=== PATIENT | male | born 2000 | race Hispanic/Latino ===

== ENCOUNTER 2024-11-30 10:59 | Emergency (ER) | payer OTHER ==
--- NOTE | 2024-11-30 11:34 | RAD REPORT ---
EXAMINATION: TWO VIEW CHEST XR CLINICAL INDICATION: Male, 24 years old. [facility] MA[facility] DYSPNEA Bed: TECHNIQUE: 2 view radiographs of the chest were performed. COMPARISON: No prior exam. FINDINGS: The lungs are well inflated and clear. No pneumothorax or sizable effusion. The heart is normal in si ze. Mediastinal contours are unremarkable. IMPRESSION: No acute or significant abnormalities.
[2024-11-30] MEDS ORDERED: LEVALBUTEROL 1.25 MG/3 ML NEB ONE (12:06)
[2024-11-30] MEDS ORDERED: predniSONE 20 MG TAB ONE (12:06)
[2024-11-30 12:44] LABS: SARS-CoV-2 Antigen CONTROL BLUE LINE VIS/BG OK; SARS-CoV-2 Antigen Rapid Res Negative (Negative)
--- NOTE | 2024-11-30 13:03 | ER ---
Nurse's Notes [facility] Name: José Miguel Bhat Age: 24 yrs Sex: Male : 2000 Arrival Date: 11/30/2024 Time: 10:59 Bed 9 Private MD: Diagnosis: Dyspnea, unspecified;Wheezing Presentation: 11/30 11:26 Chief complaint: Patient states: "I'm from [place] and since I've been down here, I ss have a constant wheeze. This happened last time I came here too." Denies fever. Coronavirus screen: Client denies travel out of the [place] in the last 14 days. Ebola Screen: Patient denies exposure to infectious person. Patient denies travel to an Ebola-affected area in the 21 days before illness onset. Initial Sepsis Screen: Does the patient meet any 2 criteria? No. Patient's initial sepsis screen is negative. Does the patient have a suspected source of infection? No. Patient's initial sepsis screen is negative. Risk Assessment: Do you want to hurt yourself or someone else? Patient reports no desire to harm self or others. Onset of symptoms was November 25, 2024. 11:26 Method Of Arrival: Ambulatory ss 11:26 Acuity: NI 3 ss Historical: - Allergies: 11:28 No Known Allergies; ss - Home Meds: 11:28 None [Active]; ss - PMHx: 11:28 None; ss - PSHx: 11:28 None; ss - Immunization history:: Client reports having NOT received the Covid vaccine. - Infectious Disease History:: Denies. - Social history:: Smoking status: Patient/guardian denies using tobacco, Stopped _ months ago .25. - Family history:: not pertinent. - Hospitalizations: : No recent hospitalization is reported. Screenin:19 [facility] ED Fall Risk Assessment (Adult) History of falling in the last 3 months, jb4 including since admission No falls in past 3 months (0 pts) Confusion or Disorientation No (0 pts) Intoxicated or Sedated No (0 pts) Impaired Gait No (0 pts) Mobility Assist Device Used No (0 pt) Altered Elimination No (0 pt) Score/Fall Risk Level 0 - 2 = Low Risk Oriented to surroundings, Maintained a safe environment. Abuse screen: Denies threats or abuse. Nutritional screening: No deficits noted. Tuberculosis screening: No symptoms or risk factors identified. Assessment: 12:19 General: Appears in no apparent distress. comfortable, Behavior is calm, cooperative, jb4 appropriate for age. Pain: Denies pain. Neuro: Level of Consciousness is awake, alert, obeys commands, Oriented to person, place, time, situation. Cardiovascular: Patient's skin is warm and dry. Respiratory: Airway is patent Respiratory effort is even, unlabored, Respiratory pattern is regular, symmetrical. EENT: Throat is clear has enlarged tonsils bilaterally with gag reflex present. Derm: Skin is intact, Skin is pink, warm \\T\\ dry. 13:14 Reassessment: Patient appears in no apparent distress at this time. Patient and/or jb4 family updated on plan of care and expected duration. Pain level reassessed. Patient is alert, oriented x 3, equal unlabored respirations, skin warm/dry/pink. Vital Signs: 11:26 BP 148 / 91; Pulse 115; Resp 20; Temp 98.5; Pulse Ox 96% on R/A; Weight 122.47 kg; ss Height 5 ft. 8 in. ; Pain 0/10; 11:26 Body Mass Index 41.05 (122.47 kg, 172.72 cm) ss 11:26 Pain Scale: Adult ss ED Course: 11:02 Patient arrived in ED. ra3 11:07 Charlie Mnauel MD is Attending Physician. rn 11:23 XRAY Chest Pa And Lat (2 Views) In Process Unspecified. EDMS 11:28 Triage completed. ss 11:28 Arm band placed on right wrist. ss 12:18 Robert Garcias, RN is Primary Nurse. jb4 12:19 Patient has correct armband on for positive identification. Bed in low position. Call jb4 light in reach. Side rails up X 1. Provided Education on: plan of care. 12:21 Flu Sent. jb4 12:21 SARS-COV-2 Antigen Rapid Sent. jb4 12:21 Strep Sent. jb4 13:21 No provider procedures requiring assistance completed. Patient did not have IV access jb4 during this emergency room visit. Administered Medications: 12:14 Drug: Levalbuterol Inhalation 1.25 mg Inhalation once Route: Inhalation; jb4 13:22 Follow up: Response: No adverse reaction; Marked relief of symptoms jb4 12:14 Drug: predniSONE PO 60 mg PO once Route: PO; jb4 13:21 Follow up: Response: No adverse reaction; Marked relief of symptoms jb4 Medication: 12:19 VIS not applicable for this client. jb4 Outcome: 13:02 Discharge ordered by . rn 13:21 Discharged to home ambulatory, jb4 13:21 Condition: stable 13:21 Discharge instructions given to patient, Instructed on discharge instructions, follow up and referral plans. medication usage, Demonstrated understanding of instructions, follow-up care, medications, Prescriptions given X 2, 13:22 Patient left the ED. jb4 Signatures: Dispatcher [employer] EDMS Charlie Manuel MD MD rn Blanchard, Shelby, RN RN ss Bryson, James, RN RN jb4 Margy Roy 3
--- NOTE | 2024-11-30 13:03 | EDPHYS ---
Physician Documentation [facility] Name: José Miguel Bhat Age: 24 yrs Sex: Male : 2000 Arrival Date: 11/30/2024 Time: 10:59 Bed 9 Private MD: ED Physician Charlie Manuel HPI: 11/30 12:58 This 24 yrs old Male presents to ER via Ambulatory with complaints of rn Breathing Difficulty. 12:59 The patient has shortness of breath at rest, with light activity. Onset: The rn symptoms/episode began/occurred 3 day(s) ago. Duration: The symptoms are intermittent. The patient's shortness of breath is aggravated by coughing, exertion. Severity of symptoms: At their worst the symptoms were mild in the emergency department the symptoms are unchanged. The patient has experienced a previous episode. Patient reports he is not from around here, came from [place] and immediately upon arrival felt the wheezing and short of breath. Reports he was sick this past week with a cough and congestion but felt like he was improving, also had exposure to someone ill. Patient states last time he visited [place] he became short of breath and was wheezing as well. Denies history of asthma. Does smoke.. Historical: - Allergies: 11:28 No Known Allergies; ss - Home Meds: 11:28 None [Active]; ss - PMHx: 11:28 None; ss - PSHx: 11:28 None; ss - Immunization history:: Client reports having NOT received the Covid vaccine. - Infectious Disease History:: Denies. - Social history:: Smoking status: Patient/guardian denies using tobacco, Stopped _ months ago .25. - Family history:: not pertinent. - Hospitalizations: : No recent hospitalization is reported. ROS: 12:59 Constitutional: Negative for fever, chills, and weight loss, Cardiovascular: Negative rn for chest pain, palpitations, and edema, Respiratory: Positive for cough and shortness of breath Abdomen/GI: Negative for abdominal pain, nausea, vomiting, diarrhea, and constipation, MS/Extremity: Negative for injury and deformity, Skin: Negative for injury, rash, and discoloration, Neuro: Negative for headache, weakness, numbness, tingling, and seizure, Exam: 12:59 Constitutional: This is a well developed, well nourished patient who is awake, alert, rn and in no acute distress. Cardiovascular: Tachycardic, regular. Respiratory: Mild tachypnea with expiratory wheezing at bases MS/ Extremity: Pulses equal, no cyanosis. Neurovascular intact. Full, normal range of motion. Equal circumference. Neuro: Awake and alert, GCS 15 Vital Signs: 11:26 BP 148 / 91; Pulse 115; Resp 20; Temp 98.5; Pulse Ox 96% on R/A; Weight 122.47 kg; ss Height 5 ft. 8 in. ; Pain 0/10; 11:26 Body Mass Index 41.05 (122.47 kg, 172.72 cm) ss 11:26 Pain Scale: Adult ss MDM: 11:07 Medical Screening Exam initiated rn 12:59 Differential diagnosis: pneumonia, Pneumothorax Reactive airway disease, wheezing. Data rn reviewed: vital signs, nurses notes, lab test result(s), radiologic studies, plain films, and as a result, I will discharge patient. Counseling: I had a detailed discussion with the patient and/or guardian regarding the historical points, exam findings, and any diagnostic results supporting the discharge/admit diagnosis, lab results, radiology results, the need for outpatient follow up, to return to the emergency department if symptoms worsen or persist or if there are any questions or concerns that arise at home. Response to treatment: the patient's symptoms have markedly improved after treatment, and as a result, I will discharge patient. Special discussion: I discussed with the patient/guardian in detail that at this point there is no indication for admission to the hospital. It is understood, however, that if the symptoms persist or worsen the patient needs to return immediately for re-evaluation. ED course: Patient improved with nebulizer treatment. Chest x-ray images negative for pneumonia or pneumothorax per my interpretation. Will discharge home with steroids and inhaler as likely reactive airway disease and recommend cessation of smoking.. 11/30 11:36 Order name: Flu; Complete Time: 12:53 rn 11/30 11:36 Order name: SARS-COV-2 Antigen Rapid; Complete Time: 12:53 rn 11/30 11:36 Order name: Strep rn 11/30 12:47 Order name: Throat Culture EDMS 11/30 11:07 Order name: XRAY Chest Pa And Lat (2 Views); Complete Time: 12:28 rn Administered Medications: 12:14 Drug: Levalbuterol Inhalation 1.25 mg Inhalation once Route: Inhalation; jb4 13:22 Follow up: Response: No adverse reaction; Marked relief of symptoms jb4 12:14 Drug: predniSONE PO 60 mg PO once Route: PO; jb4 13:21 Follow up: Response: No adverse reaction; Marked relief of symptoms jb4 Disposition Summary: 11/30/24 13:02 Discharge Ordered Notes: Location: Home rn Problem: new rn Symptoms: have improved rn Condition: Stable rn Diagnosis - Dyspnea, unspecified rn - Wheezing rn Followup: rn - With: Private Physician - When: As needed - Reason: Recheck today's complaints, Re-evaluation by your physician Discharge Instructions: - Discharge Summary Sheet rn - Shortness of Breath, Adult rn Forms: - Medication Reconciliation Form rn - Antibiotic media relations intern - Prescription Opioid Use rn - Patient Portal Instructions rn - Leadership Thank You Letter rn Prescriptions: - albuterol sulfate 90 mcg/actuation Inhalation HFA Aerosol Inhaler - inhale 2 inhalation INHALATION route every 4 to 6 hours As needed as needed for rn bronchospasm; administer via ventilator; 1 unit; Refills: 0, Product Selection Permitted - Prednisone 20 mg Oral Tablet - take 3 tablets ORAL route once daily for 5 days; 15 tablet; Refills: 0, Product rn Selection Permitted Signatures: Dispatcher [employer] EDMS Charlie Manuel MD MD rn Blanchard, Shelby, RN RN ss Bryson, James, RN RN jb4 Corrections: (The following items were deleted from the chart) 11:36 11:36 Influenza Screen (A \T\ B)+BA.LAB.BRZ ordered. EDMS EDMS 11:36 11:36 SARS-COV-2 Antigen Rapid+I.LAB.BRZ ordered. EDMS EDMS 11:36 11:36 Group A Streptococcus Rapid Sc+BA.LAB.BRZ ordered. EDMS EDMS
[2024-11-30 13:44] VITALS: BP 148/91; TEMP 98.5; O2SAT 96
== END 2024-11-30 13:22 | disposition home or self-care (01) ==
LOC: ER 10:59
DX: R06.00 Dyspnea, unspecified (principal); R06.2 Wheezing; Z72.0 Tobacco use; Z11.52 Encounter for screening for COVID-19
CPT/HCPCS: 87070; 36415; 87081; 87804 ×2; 71046; 99284; 87811; J7512; J7614

== ENCOUNTER 2024-12-15 15:27 | Emergency (ER) | payer OTHER ==
--- NOTE | 2024-12-15 16:23 | RAD REPORT ---
Procedure: Chest Pa And Lat (2 Views) HISTORY: Cough COMPARISON: November 30, 2024 FINDINGS: The lungs appear clear of acute infiltrate. No significant pleural effusion noted. The heart is normal size. IMPRESSION: No acute abnormality is displayed.
--- NOTE | 2024-12-15 17:33 | ER ---
Nurse's Notes [facility] Name: José Miguel Bhat Age: 24 yrs Sex: Male : 2000 Arrival Date: 12/15/2024 Time: 15:27 Bed 8 Private MD: Diagnosis: Cough Presentation: 12/15 15:40 Chief complaint: Wheezing, SOB, and persistent cough x 2 weeks. Coronavirus screen: At this time, the client does not indicate any symptoms associated with coronavirus-19. Ebola Screen: No symptoms or risks identified at this time. Initial Sepsis Screen: Does the patient meet any 2 criteria? No. Patient's initial sepsis screen is negative. Does the patient have a suspected source of infection? No. Patient's initial sepsis screen is negative. Risk Assessment: Do you want to hurt yourself or someone else? Patient reports no desire to harm self or others. Onset of symptoms was December 01, 2024. 15:40 Method Of Arrival: Ambulatory hb 15:40 Acuity: NI 3 hb Historical: - Allergies: 15:41 No Known Allergies; hb - Home Meds: 15:41 None [Active]; hb - PMHx: 15:41 None; hb - PSHx: 15:41 None; hb - Immunization history:: Adult Immunizations up to date. - Infectious Disease History:: Denies. - Social history:: Smoking status: Patient denies any tobacco usage or history of. Screenin:50 [facility] ED Fall Risk Assessment (Adult) History of falling in the last 3 months, db including since admission No falls in past 3 months (0 pts) Confusion or Disorientation No (0 pts) Intoxicated or Sedated No (0 pts) Impaired Gait No (0 pts) Mobility Assist Device Used No (0 pt) Altered Elimination No (0 pt) Score/Fall Risk Level 0 - 2 = Low Risk Oriented to surroundings, Maintained a safe environment. Abuse screen: Denies threats or abuse. Denies injuries from another. Nutritional screening: No deficits noted. Tuberculosis screening: No symptoms or risk factors identified. Assessment: 17:50 Reassessment: Patient appears in no apparent distress at this time. Patient and/or db family updated on plan of care and expected duration. Pain level reassessed. Patient is alert, oriented x 3, equal unlabored respirations, skin warm/dry/pink. General: Appears in no apparent distress. comfortable, Behavior is calm, cooperative. Pain: Denies pain. Neuro: Level of Consciousness is awake, alert, obeys commands, Oriented to person, place, time, situation. Respiratory: Airway is patent Respiratory effort is even, unlabored, Respiratory pattern is regular, symmetrical. Vital Signs: 15:40 BP 155 / 100; Pulse 58; Resp 20; Temp 97.7; Pulse Ox 97% on R/A; Weight 117.93 kg; hb Height 5 ft. 8 in. ; Pain 0/10; 17:50 BP 136 / 90; Pulse 69; Resp 16; Pulse Ox 100% on R/A; db 18:05 BP 136 / 93; Pulse 81; Resp 18; Pulse Ox 100% ; db 15:40 Body Mass Index 39.53 (117.93 kg, 172.72 cm) hb 15:40 Pain Scale: Adult hb ED Course: 15:29 Patient arrived in ED. mr 15:30 Ava Lowe, [facility]. kb 15:30 Kurt Briceño MD is Attending Physician. kb 15:41 Triage completed. hb 15:42 Arm band placed on. hb 16:00 Chest Pa And Lat (2 Views) XRAY In Process Unspecified. EDMS 17:40 Tess Ramirez, RN is Primary Nurse. db 17:50 Patient has correct armband on for positive identification. Side rails up X 1. Provided db Education on: DISCHARGE. Pulse ox on. NIBP on. Warm blanket given. Pillow given. 17:50 No provider procedures requiring assistance completed. Patient did not have IV access db during this emergency room visit. 18:15 Initial Neb Treatment Given as ordered Patient tolerated procedure well without adverse db effect. Administered Medications: 17:50 Drug: Ipratropium Inhalation Aerosol 0.5 mg Inhalation once Route: Inhalation; db 18:16 Follow up: Response: No adverse reaction db 17:50 Drug: Dexamethasone IM 10 mg IM once Route: IM; Site: right deltoid; db 18:16 Follow up: Response: No adverse reaction db 17:51 Drug: Albuterol Inhalation 2.5 mg Inhalation once Route: Inhalation; db 18:16 Follow up: Response: No adverse reaction db Medication: 17:50 VIS not applicable for this client. db Outcome: 17:32 Discharge ordered by . kb 18:24 Discharged to home ambulatory, db 18:24 Condition: stable 18:24 Discharge instructions given to patient, Instructed on discharge instructions, follow up and referral plans. Prescriptions given X 1, 18:25 Patient left the ED. db Signatures: Dispatcher [employer] EDAva Minor, COMPUTER SCIENCES PROFESSOR-C COMPUTER SCIENCES PROFESSOR-Ckb SueroFrannie, Reg Reg mr Mariangel Garcia, RN RN Tess Day RN RN db Corrections: (The following items were deleted from the chart) 15:42 15:40 BP 155 / 100; Pulse 58bpm; Resp 20bpm; Pulse Ox 97% RA; Temp 97.7F; hb hb 18:24 17:50 Initial Neb Treatment Given as ordered Patient tolerated procedure well without db adverse effect db
--- NOTE | 2024-12-15 17:33 | EDPHYS ---
Physician Documentation [facility] Name: José Miguel Bhat Age: 24 yrs Sex: Male : 2000 Arrival Date: 12/15/2024 Time: 15:27 Bed 8 Private MD: ED Physician Kurt Briceño HPI: 12/15 17:31 This 24 yrs old Male presents to ER via Ambulatory with complaints of Wheezing.kb 17:31 Pt is a 24 year old male who presents for cough, shortness of breath and wheezing that kb started 2 weeks ago. States it isn't getting any better. Denies fever. No aggravating or alleviating factors. . Historical: - Allergies: 15:41 No Known Allergies; hb - Home Meds: 15:41 None [Active]; hb - PMHx: 15:41 None; hb - PSHx: 15:41 None; hb - Immunization history:: Adult Immunizations up to date. - Infectious Disease History:: Denies. - Social history:: Smoking status: Patient denies any tobacco usage or history of. ROS: 17:30 Constitutional: As per HPI kb Exam: 17:30 Constitutional: This is a well developed, well nourished patient who is awake, alert, kb and in no acute distress. Head/Face: Normocephalic, atraumatic. ENT: Moist Mucous membranes Cardiovascular: Regular rate Respiratory: Respirations even and unlabored. No increased work of breathing. Talking in full sentences Skin: Warm, dry with normal turgor. Normal color. MS/ Extremity: Pulses equal, no cyanosis. Neurovascular intact. Full, normal range of motion. Neuro: Awake and alert, GCS 15, oriented to person, place, time, and situation. Vital Signs: 15:40 BP 155 / 100; Pulse 58; Resp 20; Temp 97.7; Pulse Ox 97% on R/A; Weight 117.93 kg; hb Height 5 ft. 8 in. ; Pain 0/10; 17:50 BP 136 / 90; Pulse 69; Resp 16; Pulse Ox 100% on R/A; db 18:05 BP 136 / 93; Pulse 81; Resp 18; Pulse Ox 100% ; db 15:40 Body Mass Index 39.53 (117.93 kg, 172.72 cm) hb 15:40 Pain Scale: Adult hb MDM: 15:30 Medical Screening Exam initiated kb 17:31 Differential Diagnosis: Bronchitis Influenza Upper Respiratory Infection Pneumonia. kb Data reviewed: vital signs, nurses notes. I considered the following discharge prescriptions or medication management in the emergency department I discussed and recommended Over The Counter medications, Antibiotics: At this time antibiotics are not recommended, Antivirals: At this time, antivirals are not recommended. Counseling: I had a detailed discussion with the patient and/or guardian regarding the historical points, exam findings, and any diagnostic results supporting the discharge/admit diagnosis, radiology results, the need for outpatient follow up, a family practitioner, to return to the emergency department if symptoms worsen or persist or if there are any questions or concerns that arise at home. 12/15 15:47 Order name: Chest Pa And Lat (2 Views) XRAY; Complete Time: 16:24 kb Administered Medications: 17:50 Drug: Ipratropium Inhalation Aerosol 0.5 mg Inhalation once Route: Inhalation; db 18:16 Follow up: Response: No adverse reaction db 17:50 Drug: Dexamethasone IM 10 mg IM once Route: IM; Site: right deltoid; db 18:16 Follow up: Response: No adverse reaction db 17:51 Drug: Albuterol Inhalation 2.5 mg Inhalation once Route: Inhalation; db 18:16 Follow up: Response: No adverse reaction db Disposition: 12/16 07:03 Co-signature as Attending Physician, Kurt Briceño MD I reviewed the patient's care rt provided by the Advanced Practice Provider and agree with the diagnosis and treatment plan. Disposition Summary: 12/15/24 17:32 Discharge Ordered Notes: Location: Home kb Condition: Stable kb Diagnosis - Cough kb Followup: kb - With: Emergency Department - When: As needed - Reason: Worsening of condition Followup: kb - With: Private Physician - When: 2 - 3 days - Reason: Recheck today's complaints, Continuance of care, Re-evaluation by your physician Discharge Instructions: - Discharge Summary Sheet kb - Cough, Adult, [id number] kb Forms: - Medication Reconciliation Form kb - Antibiotic Education kb - Prescription Opioid Use kb - Patient Portal Instructions kb - Leadership Thank You Letter kb Prescriptions: - albuterol sulfate 90 mcg/actuation Inhalation HFA Aerosol Inhaler - inhale 2 puff INHALATION route every 4 to 6 hours As needed; 1 Unspecified; kb Refills: 0, Product Selection Permitted Signatures: Dispatcher [employer] Ava Vanegas, PASSENGER BARGE MASTER-C PASSENGER BARGE MASTER-Ricob Mariangel Garcia, RN RN Tess Day, RN RN db Kurt Briceño MD MD rt
[2024-12-15] MEDS ORDERED: IPRATROPIUM BROM 0.5MG/2.5ML ONE (17:44)
[2024-12-15] MEDS ORDERED: dexAMETHasone 10 MG/ML VIAL ONE (17:44)
[2024-12-15] MEDS ORDERED: ALBUTEROL 2.5 MG/3 ML NEB SOL ONE (17:44)
[2024-12-15 21:22] VITALS: TEMP 97.7
[2024-12-15 21:23] VITALS: O2SAT 100
[2024-12-15 21:24] VITALS: BP 136/93
== END 2024-12-15 18:25 | disposition home or self-care (01) ==
LOC: ER 15:27
DX: R05.9 Cough, unspecified (principal)
CPT/HCPCS: 71046; 94640; 96372; 99284; J7613; J7644; J1100